=== PATIENT | female | born 1985 | race Asian ===

== ENCOUNTER 2018-09-22 20:45 | Emergency (ER) | payer SELFPAY ==
[~2018-09-22] VITALS: Wt 49.9 kg
[2018-09-22 21:16] VITALS: BP 129/62; PULSE 104; RESP 20
--- NOTE | 2018-09-22 23:39 | ERD ---
ER Documentation Chief Complaint Chief Complaint nausea x 5 days HPI The patient is a 33-year-old female, presenting to the ER because of intermittent nausea for 1 week, she [place] from [facility] where she stayed for 1 week. She did not have diarrhea, she did not feel sick when she was in [place], his fever, chills, neck pain, chest pain, dyspnea, abdominal pain, vomiting, dysuria, diarrhea. She noted that she had white stool x2 today. She does not smoke, drinks socially Past medical/surgical history: None ROS All systems reviewed and are negative except as per history of present illness. Medications Home Meds Active Scripts Ondansetron (Ondansetron Odt) 4 Mg Tab.rapdis, 4 MG PO Q6H PRN for NAUSEA AND/OR VOMITING, #10 TAB Prov:KASIE LAL MD 09/23/18 Allergies Allergies: Coded Allergies: No Known Allergy (Unverified , 09/23/18) Physical Exam Vitals Vital Signs Date Temp Pulse Resp B/P (MAP) Pulse Ox O2 O2 Flow FiO2 Time Delivery Rate 09/22/18 97.8 104 20 129/62 98 21:16 (84) Physical Exam Const: No acute distress. Head: Atraumatic. Eyes: Normal Conjunctiva. ENT: Normal External Ears, Nose and Mouth. Neck: Full range of motion. No meningismus. Resp: Clear to auscultation bilaterally. Cardio: Regular rate and rhythm. Abd: Soft, non distended, normal bowel sounds, non tender. Skin: No petechiae or rashes. Back: No midline or flank tenderness. Ext: No cyanosis, or edema. Neur: Awake and alert. No focal deficit Psych: Normal Mood and Affect. Result Diagram: 09/23/18 0003 09/23/18 0003 Results 24 hrs Laboratory Tests Test 09/23/18 00:03 09/23/18 00:22 09/23/18 00:25 White Blood Count 5.7 10^3/ul Red Blood Count 4.69 10^6/ul Hemoglobin 14.6 g/dl Hematocrit 45.3 % Mean Corpuscular Volume 96.6 fl Mean Corpuscular Hemoglobin 31.1 pg Mean Corpuscular 32.2 g/dl Hemoglobin Concent Red Cell Distribution Width 12.9 % Platelet Count 277 10^3/UL Mean Platelet Volume 11.0 fl Immature Granulocytes % 0.400 % Neutrophils % 54.4 % Lymphocytes % 32.7 % Monocytes % 11.1 % Eosinophils % 0.9 % Basophils % 0.5 % Nucleated Red Blood Cells % 0.0 /100WBC Immature Granulocytes # 0.020 10^3/ul Neutrophils # 3.1 10^3/ul Lymphocytes # 1.9 10^3/ul Monocytes # 0.6 10^3/ul Eosinophils # 0.1 10^3/ul Basophils # 0.0 10^3/ul Nucleated Red Blood Cells # 0.0 10^3/ul Sodium Level 144 mmol/L Potassium Level 4.6 mmol/L Chloride Level 101 mmol/L Carbon Dioxide Level 27 mmol/L Anion Gap 16 Blood Urea Nitrogen 10 mg/dl Creatinine 0.60 mg/dl Est Glomerular Filtrat Rate mL/min > 60 mL/min Glucose Level 94 mg/dl Calcium Level 10.0 mg/dl Total Bilirubin 0.2 mg/dl Direct Bilirubin 0.00 mg/dl Indirect Bilirubin 0.2 mg/dl Aspartate Amino Transf (AST/SGOT) 26 IU/L Alanine < 6 IU/L Aminotransferase (ALT/SGPT) Alkaline Phosphatase 56 IU/L Total Protein 9.1 g/dl Albumin 5.2 g/dl Globulin 3.90 g/dl Albumin/Globulin Ratio 1.33 Lipase 227 U/L Bedside Urine pH (LAB) 5.5 Bedside Urine Protein (LAB) Negative Bedside Urine Glucose (UA) Negative Bedside Urine Ketones (LAB) Negative Bedside Urine Blood Trace-intact Bedside Urine Nitrite (LAB) Negative Bedside Urine Leukocyte Esterase Negative (L POC Beta HCG, Qualitative NEGATIVE Current Medications Medications Dose Sig/Anuel Start Time Status Last (Trade) Ordered Route PRN Stop Time Admin Dose Reason Admin Ondansetron 4 mg ONCE STAT 09/23/18 DC HCl (Zofran ODT 01:55 Odt) 09/23/18 01:56 Procedures/MDM MEDICAL MAKING DECISION: The patient is a 33-year-old female, presenting with acute nausea of unclear etiology but does not vomit. She was treated with Zofran ODT for nausea with good response, is stable for outpatient follow-up. She provided the stool from home, it was sent for culture The differential diagnoses considered include but are not limited to dyspepsia, UTI, gastritis , cholelithiasis, cholecystitis, choledocholithiasis, cholangitis, pancreatitis, hepatitis, gastritis, peptic ulcer disease, gastric ulcer, appendicitis, cystitis, diverticulitis, partial small bowel obstruction. Departure Diagnosis: Primary Impression: Nausea Condition: Good Comments She was discharged with Deanna STAPLETON I discussed the findings with the patient. I advised the patient to follow-up with the primary physician in about 2-3 days, sooner if needed and return if any concern. Disclaimer: Inadvertent spelling and grammatical errors are likely due to EHR/dictation software use and do not reflect on the overall quality of patient care. Also, please note that the electronic time recorded on this note does not necessarily reflect the actual time of the patient encounter. KASIE LAL MD Sep 22, 2018 23:39
[2018-09-23] MEDS ORDERED: ONDANSETRON (ODT) 4 MG TAB ODT STA (01:55)
[2018-09-23] MEDS ORDERED: ONDA4TAB14 PO (01:57)
[2018-09-24] MEDS ORDERED: ACET500C5 PO (14:47)
== END 2018-09-23 02:15 | disposition home or self-care (01) ==
LOC: E/R 20:45
DX: R11.0 Nausea (principal)
CPT/HCPCS: 36415; 80053; 81003; 81025; 83690; 85025; 87045; 99283

== ENCOUNTER 2018-09-24 10:08 | Emergency (ER) | payer SELFPAY ==
[~2018-09-24] VITALS: Ht 165.1 cm; Wt 50.0 kg
[~2018-09-24 10:08] MED LIST: ONDA4TAB14 PO
[2018-09-24 10:11] VITALS: Ht 165.1 cm; Wt 50.0 kg
[2018-09-24] MEDS ORDERED: ACET500C5 PO (14:47)
[2018-09-24 15:00] VITALS: BP 110/67; PULSE 71; RESP 16
--- NOTE | 2018-09-24 21:06 | ERD ---
ER Documentation Chief Complaint Chief Complaint pt is bib self , [place] urgent [place] pain HPI 33-year-old female patient with no significant past medical history Center for urgent care for abdominal pain. Patient reports that she traveled to [facility] and return on September 18, 2018. States that she had experienced nausea, dizziness on September 13, 2018. States that she noted some white colored stools. Patient was seen here 2 days ago and received blood work which was negative for any acute findings. Denies any chest pain or shortness of breath, dysuria, urgency, frequency, hematuria, diarrhea. Reports that she is waiting for the feces culture. ROS All systems reviewed and are negative except as per history of present illness. Medications Home Meds Active Scripts Acetaminophen* (Tylophen*) 500 Mg Capsule, 1 CAP PO Q6H PRN for PAIN AND OR ELEVATED TEMP, #20 CAP Prov:RIGO BRADY PA-C 09/24/18 Ondansetron (Ondansetron Odt) 4 Mg Tab.rapdis, 4 MG PO Q6H PRN for NAUSEA AND/OR VOMITING, #10 TAB Prov:KASIE LAL MD 09/23/18 Allergies Allergies: Coded Allergies: No Known Allergy (Unverified , 09/23/18) PMhx/Soc Medical and Surgical Hx: pt denies Medical Hx, pt denies Surgical Hx Anesthesia Reaction: No Hx Neurological Disorder: No Hx Alcohol Use: No Hx Substance Use: No Hx Tobacco Use: No Smoking Status: Never smoker FmHx Family History: No diabetes, No coronary disease Physical Exam Vitals Vital Signs Date Temp Pulse Resp B/P (MAP) Pulse Ox O2 O2 Flow FiO2 Time Delivery Rate 09/24/18 98.0 71 16 110/67 98 Room Air 15:00 (81) 09/24/18 98.3 83 16 105/69 99 10:11 (81) Physical Exam Const: Hyg-fgi-hwnqynwuz, well-nourished. In no acute distress. Head: Atraumatic, normocephalic Eyes: Normal Conjunctiva without injection. No purulent discharge. ENT: Normal external ear, nose. Moist oropharynx without tonsillar exudates. Non-erythematous pharynx. Uvula midline. No drooling. No trismus. Neck: No cervical midline tenderness. Full range of motion. No meningismus. No cervical lymphadenopathy. No JVD. Resp: Clear to auscultation bilaterally. No wheezing, rhonchi, rales, or crackles. No accessory muscle use. No retractions. Cardio: Regular rate and rhythm. No murmurs, rubs or gallops. Abd: Soft, right upper quadrant tenderness, non distended. Normal bowel sounds. No palpable masses. No rebound tenderness. No guarding. Negative McBurney's point. Negative psoas sign. Negative obturator sign. Skin: No petechiae or rashes Back: No midline tenderness. No CVA tenderness. Ext: No cyanosis, or edema. Neur: Awake and alert. Normal gait. Normal coordination. Psych: Normal Mood and Affect Result Diagram: 09/24/18 1117 09/24/18 1117 Results 24 hrs Laboratory Tests Test 09/24/18 11:17 09/24/18 11:19 White Blood Count 4.3 10^3/ul Red Blood Count 4.48 10^6/ul Hemoglobin 14.2 g/dl Hematocrit 42.7 % Mean Corpuscular Volume 95.3 fl Mean Corpuscular Hemoglobin 31.7 pg Mean Corpuscular Hemoglobin Concent 33.3 g/dl Red Cell Distribution Width 12.7 % Platelet Count 248 10^3/UL Mean Platelet Volume 11.0 fl Immature Granulocytes % 0.200 % Neutrophils % 40.6 % Lymphocytes % 43.7 % Monocytes % 13.4 % Eosinophils % 1.2 % Basophils % 0.9 % Nucleated Red Blood Cells % 0.0 /100WBC Immature Granulocytes # 0.010 10^3/ul Neutrophils # 1.7 10^3/ul Lymphocytes # 1.9 10^3/ul Monocytes # 0.6 10^3/ul Eosinophils # 0.1 10^3/ul Basophils # 0.0 10^3/ul Nucleated Red Blood Cells # 0.0 10^3/ul Urine Color YELLOW Urine Clarity SLIGHTLY CLOUDY Urine pH 6.0 Urine Specific [place] 1.012 Urine Ketones 2+ mg/dL Urine Nitrite NEGATIVE mg/dL Urine Bilirubin NEGATIVE mg/dL Urine Urobilinogen NEGATIVE mg/dL Urine Leukocyte Esterase NEGATIVE Chris/ul Urine Microscopic RBC 1 /HPF Urine Microscopic WBC 0 /HPF Urine Squamous Epithelial Cells FEW /HPF Urine Calcium Oxalate Crystals MANY /HPF Urine Bacteria FEW /HPF Urine Hemoglobin NEGATIVE mg/dL Urine Glucose NEGATIVE mg/dL Urine Total Protein NEGATIVE mg/dl Sodium Level 140 mmol/L Potassium Level 4.0 mmol/L Chloride Level 101 mmol/L Carbon Dioxide Level 29 mmol/L Anion Gap 10 Blood Urea Nitrogen 9 mg/dl Creatinine 0.58 mg/dl Est Glomerular Filtrat Rate mL/min > 60 mL/min Glucose Level 79 mg/dl Calcium Level 9.8 mg/dl Total Bilirubin 0.5 mg/dl Direct Bilirubin 0.00 mg/dl Indirect Bilirubin 0.5 mg/dl Aspartate Amino Transf (AST/SGOT) 25 IU/L Alanine Aminotransferase (ALT/SGPT) 15 IU/L Alkaline Phosphatase 44 IU/L Total Protein 8.4 g/dl Albumin 4.9 g/dl Globulin 3.50 g/dl Albumin/Globulin Ratio 1.40 Lipase 196 U/L Hepatitis B Surface Antigen NEGATIVE Hepatitis B Core Total Antibody NEGATIVE Hepatitis C Antibody NEGATIVE POC Beta HCG, Qualitative NEGATIVE Procedures/MDM 33-year-old female patient with no significant past medical history presents to ED complaining of nausea, few episodes of vomiting that started intermittently since September 13, 2018 and now started to have abdominal pain, last night. Patien t is afebrile and nontoxic-appearing. Patient was further worked up with CBC, CMP, lipase, UA, gallbladder ultrasound. She tolerated oral intake. Patient reports that she did not want any medications here in the ED. CBC: No leukocytosis. No e/o of systemic infection. No e/o anemia. CMP: No e/o severe acidosis, alkalosis, renal failure, diabetic ketoacidosis, liver disease Lipase within normal limits. Urine: No leukocyte esterase, no nitrites, no hematuria. Urine : Negative IMPRESSION: 1. Contracted gallbladder but otherwise unremarkable. No biliary ductal dilation. 2. Unremarkable liver pancreas and right kidney. Patient no longer has any abdominal pain. Low suspicion for ectopic , ovarian torsion, gastritis, GERD, peptic ulcer disease, cholecystitis, choledo cholithiasis, cholangitis, pancreatitis, appendicitis, bowel obstruction, ileus, volvulus, nephrolithiasis, pyelonephritis, hepatitis, perforated viscus, diverticulitis, strangulated/incarcerated hernia, DKA, acute abdomen, mesenteric ischemia or other emergent conditions. Pending feces culture, hepatitis A. Discharge medications: Tylenol, Zofran Follow up with primary care physician in 1-2 days for referral to writer editor. Instructed patient to return to the ED sooner for any worsening symptoms. Patient's questions were answered. Patient understood and agreed with discharge plan. Patient discharged stable. Departure Diagnosis: Primary Impression: Abdominal pain Abdominal location: right upper quadrant Qualified Codes: R10.11 - Right upper quadrant pain Additional Impression: Nausea Condition: Stable Patient Instructions: Abdominal Pain, Healthy Eating While Traveling, Nausea Referrals: [facility] YOU HAVE RECEIVED A MEDICAL SCREENING EXAM AND THE RESULTS INDICATE THAT YOU DO NOT HAVE A CONDITION THAT REQUIRES URGENT TREATMENT IN THE EMERGENCY DEPARTMENT. FURTHER EVALUATION AND TREATMENT OF YOUR CONDITION CAN WAIT UNTIL YOU ARE SEEN IN YOUR DOCTORS OFFICE WITHIN THE NEXT 1-2 DAYS. IT IS YOUR RESPONSIBILITY TO MAKE AN APPOINTMENT FOR FOLOW-UP CARE. IF YOU HAVE A PRIMARY DOCTOR --you should call your primary doctor and schedule an appointment IF YOU DO NOT HAVE A PRIMARY DOCTOR YOU CAN CALL OUR PHYSICIAN REFERRAL HOTLINE AT IF YOU CAN NOT AFFORD TO SEE A PHYSICIAN YOU CAN CHOSE FROM THE FOLLOWING [facility] [address] [facility] [address] [facility]. [facility] [address] [facility] [address] [facility] [address] [facility]. [facility]. [address] [facility]. [facility] YOU HAVE RECEIVED A MEDICAL SCREENING EXAM AND THE RESULTS INDICATE THAT YOU DO NOT HAVE A CONDITION THAT REQUIRES URGENT TREATMENT IN THE EMERGENCY DEPARTMENT. FURTHER EVALUATION AND TREATMENT OF YOUR CONDITION CAN WAIT UNTIL YOU ARE SEEN IN YOUR DOCTORS OFFICE WITHIN THE NEXT 1-2 DAYS. IT IS YOUR RESPONSIBILITY TO MAKE AN APPOINTMENT FOR FOLOW-UP CARE. IF YOU HAVE A PRIMARY DOCTOR --you should call your primary doctor and schedule and appointment IF YOU DO NOT HAVE A PRIMARY DOCTOR YOU CAN CALL OUR PHYSICIAN REFERRAL HOTLINE AT . IF YOU CAN NOT AFFORD TO SEE A PHYSICIAN YOU CAN CHOSE FROM THE FOLLOWING [facility] INSTITUTIONS: [facility] [address] [place] [address] [facility] [address] [place] [address] [facility] [address] [place] [address] [facility] Additional Instructions: Call your primary care doctor TOMORROW for an appointment during the next 2-3 days.See the doctor sooner or return here if your condition worsens before your appointment time. Pending hepatitis A and feces culture. RIGO BRADY PA-C Sep 24, 2018 21:06
== END 2018-09-24 15:01 | disposition home or self-care (01) ==
LOC: FTE 10:08
DX: R10.11 Right upper quadrant pain (principal); R11.0 Nausea
CPT/HCPCS: 36415; 76705; 80053; 81001; 81003; 81025; 83690; 85025; 86704; 86709; 86803; 87340